=== PATIENT | female | born 1995 | race Caucasian/White ===

== ENCOUNTER 2021-02-17 10:45 | Outpatient (CLI) | payer SELFPAY ==
[2021-02-17 11:29] LABS: Alanine Aminotransferase 14 U/L (4-35); Aspartate Amino Transferase 40 U/L (14-36)
== END 2021-02-17 10:46 | disposition home or self-care (01) ==
PROVIDERS: PCP Family Medicine; Visit Provider Podiatrist Foot & Ankle Surgery
DX: B35.1 Tinea unguium (principal)
CPT/HCPCS: 36415; 84450; 84460

== ENCOUNTER → 2021-03-16 02:53 | Outpatient (CLI) | payer OTHER, SELFPAY ==
[2021-03-17 07:19] LABS: SARS-CoV-2 RNA PCR Negative
== END ==
PROVIDERS: PCP Family Medicine; Visit Provider Physician Assistant Medical
DX: R68.89 Other general symptoms and signs (principal); Z20.822 Contact with and (suspected) exposure to COVID-19
CPT/HCPCS: C9803; U0003; U0005

== ENCOUNTER → 2021-07-01 10:27 | Outpatient (CLI) | payer OTHER, SELFPAY ==
[2021-07-02 18:18] LABS: SARS-CoV-2 RNA PCR Positive
== END ==
PROVIDERS: PCP Family Medicine; Visit Provider Nurse Practitioner Family
DX: U07.1 COVID-19 (principal)
CPT/HCPCS: C9803; U0003; U0005

== ENCOUNTER 2021-07-07 14:45 | Outpatient (RCR) | payer SELFPAY | END 2021-07-26 15:21 | disposition home or self-care (01) | LOC: ANHDMC 14:45 | PROVIDERS: PCP Family Medicine; Visit Provider Nurse Practitioner Family | DX: E10.65 Type 1 diabetes mellitus with hyperglycemia (principal); Z71.89 Other specified counseling | CPT/HCPCS: G0108 ==

== ENCOUNTER 2022-06-28 15:02 | Emergency (ER) | payer BC, SELFPAY ==
[2022-06-28 15:10] VITALS: BP 122/74; PULSE 84; RESP 16; TEMP 36.7; O2SAT 100
--- NOTE | 2022-06-28 15:30 | PC.NURSE ---
concerned with cost, is checking carlos website prior to being seen by provider, aware need for information through insurance co.
--- NOTE | 2022-06-28 15:51 | PC.NURSE ---
came to nurse station and stated did speak with insurance provider and insurance in network with [facility] and does want to be evaluated by dining server.
--- NOTE | 2022-06-28 15:58 | ED.URI ---
HPI - URI/Sore Throat General Chief Complaint: Upper Respiratory Infection Stated Complaint: cp Source: patient Mode of arrival: ambulatory Limitations: no limitations History of Present Illness HPI Narrative: 27 y/o female with hx DM presented for complaints of an episode of CP med today work. She states the pain was ?L? shaped i the center of the chest and under the breast, the episode was brief and resulted in a second of 'breathlessness.' States she felt better when she put on her coat. Tested negative for flu and covid at her job. Blood sugar today is 100. Endorses feeling weak. No complaint of palpitations, sob, wheezing, cough, n/v at this time. States she had an episode of vomiting about one week ago followed by 5 days of diarrhea which improved yesterday after taking imodium. Patient is taking diclofenac for plantar fasciitis. Related Data Home Medications Medication Instructions Recorded Confirmed diclofenac sodium 75 mg mg PO 06/28/22 tablet,delayed release Allergies Allergy/AdvReac Type Severity Reaction Status Date / Time No Known Allergies Allergy Verified 06/28/22 15:06 Review of Systems Review of Systems: CONSTITUTIONAL: Denies body aches, fever, chills, or sweats. EYES: Denies visual changes, redness, or discharge. ENT: Denies rhinorrhea, congestion, sore throat, or otalgia. CARDIOVASCULAR: per HPI. RESPIRATORY: Denies cough or dyspnea. GASTROINTESTINAL: Denies abdominal pain, nausea, vomiting, or diarrhea. GENITOURINARY: Denies dysuria or hematuria. SKIN: Denies rash, itching, or wounds. MUSCULOSKELETAL: Denies back pain, joint pain, or myalgia. NEUROLOGIC: Denies headache, numbness, tingling, or weakness. All systems reviewed & are unremarkable except as noted in HPI and below PMFSH Past Medical History Medical History BMI 23.0-23.9, adult Long-term insulin use Type 1 diabetes mellitus Family History Family History Father Hypertension Mother Thyroid disease Sibling No problems noted. Social History Social History Smoking status: Never smoker Second hand tobacco smoke exposure: Yes Alcohol intake: never Substance use: never Gender identity (if verbalized by the patient): Female Comments At time of signature, I have reviewed and agree with nursing past medical, surgical, social and family history unless otherwise noted. Please see nursing chart for further information. There is no relevant family history pertinent to the presenting complaint Exam Narrative: GENERAL: Well-appearing, well-nourished, and in no acute distress. HEAD: Normocephalic, atraumatic. EYES: EOMI. No redness or drainage. Conjunctivae normal. ENT: Mucous membranes pink and moist. NECK: Normal AROM. Supple. CHEST: No respiratory distress. Clear to auscultation. Nontender mid chest. HEART: Regular rate and rhythm. No murmur appreciated. Normal peripheral pulses. ABDOMEN: Soft, nondistended, normal active bowel sounds. Tender to epigastric area SKIN: Warm, dry, no rash. Capillary refill normal. Normal skin turgor. NEURO: No focal deficits. Alert and oriented x3. PSYCH: Normal affect. Course Course Emergency Course: Patient is aware of diagnosis, understands and agrees to treatment plan. Anticipatory guidance given. Patient agrees to follow-up as directed and is aware of reasons to seek care at the emergency department. Portions of this record may have been created with voice recognition software Level of Care: Express Care Visit Vital Signs Vital signs: Vital Signs Temperature 98.1 F 06/28/22 15:10 Pulse Rate 84 06/28/22 15:10 Respiratory Rate 16 06/28/22 15:10 Blood Pressure 122/74 06/28/22 15:10 Pulse Oximetry 100 06/28/22 15:10 Oxygen Delivery Room Air 06/28/22 15:10 Temperatu
== END 2022-06-28 16:21 | disposition home or self-care (01) ==
PROVIDERS: Emergency Provider Nurse Practitioner Family; PCP Family Medicine
DX: R07.89 Other chest pain (principal); E10.9 Type 1 diabetes mellitus without complications
CPT/HCPCS: 99211; G0463

== ENCOUNTER 2023-01-25 09:30 | Outpatient (RCR) | payer BC, SELFPAY ==
--- NOTE | 2022-12-01 10:47 | OPREHPOC ---
Outpatient Therapy Plan of Care This is a Multidisciplinary Plan of Care that may contain components documented by all disciplines (PT, OT, and ST.) PT Problem 1 PT Problem #1 Knowledge Deficit PT Goal 1 Goal Independent with HEP Target Visit 6 PT Problem 2 PT Problem #2 Pain PT Goal 1 Goal decrease pain to 2/10 at worst Target Visit 6 PT Problem 3 PT Problem #3 Impaired Range of Motion PT Goal 1 Goal LON Eversion to 20 degrees Target Visit 6 PT Problem 4 PT Problem #4 Impaired Flexibility PT Goal 1 Goal decrease LON gastroc tightness to allow for equal dorsiflexion range of motion with knee bent or straight. Target Visit 6
--- NOTE | 2022-12-01 10:47 | PTOPEVAL1 ---
Assessment and note entered by Jose Carlos Ferguson, PT Evaluation Information Assessment Status Evaluation Diagnosis LON plantar fascitis Onset June 2022 Subjective Information Patient reports she started having L foot pain in June and in September starting having the same pain on the R foot. 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 Reports wearing supportive shoes. Was given set of HEP prior by her MD, but did not do them. Pain worst first thing in AM and after prolonged inactivity. Reported Pain Level Pain Score 0: Self Report Assessment PT Clinical Summary Michelle is a 27 year old female coming into the clinic with a diagnosis of LON plantar fascitis. Patient has decreased eversion in LON ankles along tightness in her LON gastrocnemius. Patient has gravely feel in her feet with manual therapy. Gave patient HEP and recommended night splints to wear throughout the night. Physical therapy will work on improving deficits along with manual and modalities for pain to help speed along recovery. Patient reports she cannot do injections secondary to blood sugar concerns being DM type 1. Plan of Care Interventions Electrical Stimulation,Gait Training,Hot Pack/Cold Pack,Manual Therapy,Neuro Re-education,Patient/ Caregiver Education,Therapeutic Activities, Therapeutic Exercise,Ultrasound Other Interventions cupping, taping, IASTM. PT Services Indicated Yes Treatment Frequency and 1-2x/wk for 4 weeks Duration These treatments will address the objective and functional deficits as defined above. The patient will be advanced safely and appropriately in order for the patient to progress towards his/her prior level of function. Additional exercises will be introduced and as well as a comprehensive home exercise program upon discharge, if needed, ?to ensure carryover of functional gains achieved in the clinic. This treatment plan has been reviewed and agreement upon by the patient.
--- NOTE | 2022-12-05 10:11 | PCPTNOTE ---
Patient did not show up for scheduled appointment this date. Called patient and told her about her next appointment. Patient states it is going to be hard to come, because she has other appointments and asked if we could call her day before appointments to remind her. Therapist informs patient we can give her a printout of her appointments, but we only call and give reminders for initial evaluation not every visit.
--- NOTE | 2022-12-28 13:06 | PTOPEVAL1 ---
Assessment and note entered by Warren Sanchez Evaluation Information Assessment Status Progress Diagnosis LON plantar fascitis Onset June 2022 Subjective Information Pt. reports she still has varying pain. She states that she no longer has pain at the left foot. She states that her pain is only on the right. She reports that she notices pain mostly in the morning. She states that she has been using taping which seems to relieve her pain as well. Reported Pain Level Pain Score 0,3: Self Report Assessment PT Clinical Summary Pt. has attended a total of 8 treatment sessions. In this time she has demonstrated improvements in pain reports and DF ROM on both right and left. She continues to have pain on the right side despite her reported improvements. continued skilled PT is indicated to continue to focus on strength, pain reduction and mobility to improve tolerance to standing activities. Plan of Care Interventions Manual Therapy,Neuro Re-education,Patient/ Caregiver Educati,Therapeutic Activities, Therapeutic Exercise Other Interventions cupping, taping, IASTM. PT Services Indicated Yes Treatment Frequency and 2x/week x 6 visits Duration These treatments will address the objective and functional deficits as defined above. The patient will be advanced safely and appropriately in order for the patient to progress towards his/her prior level of function. Additional exercises will be introduced and as well as a comprehensive home exercise program upon discharge, if needed, ?to ensure carryover of functional gains achieved in the clinic. This treatment plan has been reviewed and agreement upon by the patient.
--- NOTE | 2023-01-01 10:24 | PCPTNOTE ---
Patient called & cancelled scheduled appointment this date due to not feeling well.
--- NOTE | 2023-01-11 10:17 | PCPTNOTE ---
Pt NS due to oversleeping.
--- NOTE | 2023-01-18 12:35 | PCPTNOTE ---
pt called and canceled today's appt due to being ill.
--- NOTE | 2023-01-25 10:20 | PTOPEVAL1 ---
Assessment and note entered by Warren Sanchez Evaluation Information Assessment Status Evaluation Diagnosis LON plantar fasciitis Onset 07/10 Subjective Information Pt. reports she is having no pain today. She states that she is pleased with her progress and continues to exercise at home. She states that she will continue with exercise and is ready for discharge. Reported Pain Level Pain Score 0,0: Self Report Assessment PT Clinical Summary Pt. has met all goals established at the initial evaluation. She currently has a comprhensive HEP focused on strength and flexiblity and provided additional written instruction on this date. she is appropriate for discharge at this time. Plan of Care Interventions Manual Therapy,Neuro Re-education,Patient/ Caregiver Educati,Therapeutic Activities, Therapeutic Exercise Other Interventions cupping, taping, IASTM. PT Services Indicated Yes Treatment Frequency and D/C from PT to an independent HEP. Duration These treatments will address the objective and functional deficits as defined above. The patient will be advanced safely and appropriately in order for the patient to progress towards his/her prior level of function. Additional exercises will be introduced and as well as a comprehensive home exercise program upon discharge, if needed, ?to ensure carryover of functional gains achieved in the clinic. This treatment plan has been reviewed and agreement upon by the patient.
== END 2023-01-25 13:22 | disposition home or self-care (01) ==
LOC: ANHPT 09:30
PROVIDERS: PCP Emergency Medicine; Visit Provider Nurse Practitioner Family
DX: M72.2 Plantar fascial fibromatosis (principal)
CPT/HCPCS: 97035; 97110; 97140; 97161; 97530; 99199

== ENCOUNTER 2023-08-12 08:49 | Outpatient (CLI) | payer BC, SELFPAY ==
--- NOTE | ~2023-08-12 | MR_ITS ---
EXAMINATION: MR lower leg RT wo con DATE: 08/12/2023 09:35 INDICATION: Achilles tendinitis. Ankle pain. TECHNIQUE: Magnetic resonance imaging (MRI) of the right lower leg was performed without intravenous contrast. Sequences included coronal and bilateral T1 FSE and FSE STIR; axial right lower extremity T 1 FSE and FSE STIR; and sagittal right lower extremity sagittal T1 FSE and FSE STIR. COMPARISON: None. FINDINGS: Mild thickening to 8 mm of the distal insertional portion of the right Achilles tendon with slightly increased intermediate T1 and STIR signal within the tendon substance. Very minimal abnormal peritend inous STIR signal. No focal tear identified. Small retrocalcaneal bursa fluid collection. Small volum e right ankle fluid, slightly greater than the left. Normal bone marrow signal. No fracture identifie d. The partially visualized portions of the flexor and extensor tendons are intact. IMPRESSION: Mild right Achilles tendinopathy and paratenonitis. Mild right retrocalcaneal bursitis. Small right a nkle joint effusion. Reviewed, dictated and finalized at location K. [employer] PROF[employer] IMPRESSION: Mild right Achilles tendinopathy and paratenonitis. Mild right retrocalcaneal b ursitis. Small right ankle joint effusion.
== END 2023-08-12 08:50 | disposition home or self-care (01) ==
LOC: ANHIMG 08:51
PROVIDERS: PCP Emergency Medicine; Visit Provider Emergency Medicine
DX: M76.61 Achilles tendinitis, right leg (principal)
CPT/HCPCS: 73718

== ENCOUNTER 2024-02-13 09:30 | Outpatient (RCR) | payer BC, SELFPAY ==
--- NOTE | 2024-01-09 13:08 | OPREHPOC ---
Outpatient Therapy Plan of Care This is a Multidisciplinary Plan of Care that may contain components documented by all disciplines (PT, OT, and ST.) PT Problem 1 PT Problem #1 Knowledge Deficit PT Goal 1 Goal Pt to be IND with issued HEP Target Visit 8 PT Problem 2 PT Problem #2 Pain PT Goal 1 Goal Pt to report foot pain no greater than 3/10 in the last week. Target Visit 10 PT Goal 2 Goal Pt to report 75% improvement in overall symptoms. Target Visit 10 PT Problem 3 PT Problem #3 Pain PT Goal 1 Goal Pt to be able to be on her feet for 4 hours without an increase in pain. Target Visit 8 PT Problem 4 PT Problem #4 Impaired Range of Motion PT Goal 1 Goal Pt to improve active ankle dorsiflexion to 20 deg. Target Visit 8
--- NOTE | 2024-01-09 13:08 | PTOPEVAL1 ---
Assessment and note entered by Ct Thompson, PT, DPT Evaluation Information Assessment Status Evaluation Diagnosis Achilles tendonitis and plantar fasciitis ICD-10 Condition Codes (PT) M25.571,M25.572 Onset 1+ year Subjective Information Pt states she has had foot and calf pain for over a year. She states she has a diagnosis of plantar fascitis but she does not have that. She has gotten 2 MRIs and an ultrasound. She reports she cannot stand for longer than an hour. She reports pain in her ankle and lower calf. She states the only thing that helps is staying off her feet. Reported Pain Level Pain Score 0: Self Report Assessment PT Clinical Summary Michelle presents to therapy today for her initial evaluation. Today she demonstrates minor loss of ROM on her R ankle, with a mild decrease in ankle strength jasmyn. She demonstrates high plantar arches with tenderness to palpation along her plantar fascia. Skilled therapy services are indicated to improve ankle strength, stability, and mobility, to manage pain, and to return to [facility]. Plan of Care Interventions Gait Training,Hot Pack/Cold Pack,Manual Therapy, Neuro Re-education,Patient/Caregiver Educati, Therapeutic Activities,Therapeutic Exercise PT Services Indicated Yes Treatment Frequency and 1x/wk for 8 visits Duration These treatments will address the objective and functional deficits as defined above. The patient will be advanced safely and appropriately in order for the patient to progress towards his/her prior level of function. Additional exercises will be introduced and as well as a comprehensive home exercise program upon discharge, if needed, ?to ensure carryover of functional gains achieved in the clinic. This treatment plan has been reviewed and agreement upon by the patient.
--- NOTE | 2024-02-20 10:14 | PCPTNOTE ---
Pt no showed, forgot to cancel. Reminded of re-eval next appt in [place] vs WC.
--- NOTE | 2024-02-29 15:20 | PCPTNOTE ---
Patient was a no show/no call for today's progress note visit.
--- NOTE | 2024-03-25 09:26 | PTOPDC ---
Assessment and note entered by Ct Thompson, PT, DPT Evaluation Information Assessment Status Discharge - Pt Not Present Diagnosis Achilles tendonitis and plantar fasciitis ICD-10 Condition Codes (PT) M25.571,M25.572 Onset 1+ year Subjective Information Called and spoke with pt. She states therapy was not working for her and she is following up with pain management instead. Requested to be d/c'ed at this time. Assessment PT Clinical Summary Pt completed 5 visits of skilled pt without reported benefits. Will be d/c'ed per request.
== END 2024-03-25 16:03 | disposition home or self-care (01) ==
LOC: ANHPT 09:30
PROVIDERS: PCP Family Medicine; Visit Provider Emergency Medicine
DX: M72.2 Plantar fascial fibromatosis (principal)
CPT/HCPCS: 97022; 97035; 97110; 97140; 97161; 97530

== ENCOUNTER 2025-01-11 13:09 | Emergency (ER) | payer BC, SELFPAY ==
[2025-01-11 13:15] VITALS: BP 123/71; PULSE 101; RESP 20; TEMP 37.2; O2SAT 99
--- NOTE | 2025-01-11 13:30 | ED.URI ---
HPI - URI/Sore Throat General Chief Complaint: Upper Respiratory Infection Stated Complaint: sore throat Time Seen by Provider: 01/11/25 13:31 Source: patient, RN notes reviewed and old records reviewed Mode of arrival: ambulatory Limitations: no limitations History of Present Illness HPI Narrative: 29-year-old female presents to the [facility] with a 2 day history of a sore throat. Patient reports that she did in at home COVID and flu test which she reports is negative. Took the test on Sunday. Patient has taken [id number] products. Onset (ago): day(s) (2) Related Data Allergies Allergy/AdvReac Type Severity Reaction Status Date / Time No Known Allergies Allergy Verified 01/11/25 13:27 Review of Systems Review of Systems: All systems reviewed & are unremarkable except as noted in HPI and below Constitutional: Constitutional: Reports no additional constitutional complaints ENT: Reports as per HPI, Denies otalgia, Reports sore throat, Denies throat swelling and Denies tongue swelling Cardiovascular: Cardiovascular: Reports no additional cardiovascular complaints, Denies chest pain and Denies dyspnea Respiratory: Respiratory: Reports no additional respiratory complaints, Denies chest congestion, Denies cough and Denies dyspnea Musculoskeletal: Musculoskeletal: Reports no additional musculoskeletal complaints Integumentary/Breasts: Skin/Breast: Reports system reviewed and no additional complaints, except as docu PMFSH Past Medical History Medical History Long-term insulin use BMI 23.0-23.9, adult Type 1 diabetes mellitus Surgical History Surgical History No history of previous surgery Family History Family History Father Hypertension Mother Thyroid disease Sibling No problems noted. Social History Social History Social History: caffeine use Smoking status: Never smoker Second hand tobacco smoke exposure: Yes Alcohol intake: never Substance use: never Substance use type: does not use Do You Feel Safe in your Home?: Yes Lack of Transportation: No Lack of Food: Never True Current Housing: I Have Housing Concerned About Future Housing: No Difficulty Paying Gas/Electric Bills: No Difficulty Paying for Meds: No Currently Unemployed: No Education: Master's Degree or Higher Difficulty w/ Childcare or Family Care: No Living arrangements: with family Occupation/Education: occupation 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 There is no relevant family history pertinent to the patient complaint. Exam Const: General: cooperative, healthy appearing, comfortable, no acute distress, well developed, alert and well nourished Nutritional Appearance: well nourished Orientation/consciousness: patient oriented x3 Limitations: no limitations HENMT: Head: normal to inspection Ears: hearing grossly normal bilaterally, external ears normal, TM's normal bilaterally, EAC's normal, mastoids normal and no periauricular adenopathy Face and sinus: normal facial exam, sinuses nontender and face symmetric Mouth: Yes Normal oral and palatal mucosa present, Yes lip normal, Yes tongue normal and Yes moist mucous membranes Throat: posterior oropharynx normal, uvula midline, postnasal drainage and no uvular edema Eyes: General: appearance normal, both eyes and all related structures Alignment and Position: alignment normal Neck: Neck: normal visual inspection, full ROM, no lymphadenopathy and no meningeal signs Chest: Chest palpation & inspection: normal inspection of the chest Resp: Effort & Inspection: normal respiratory effort and able to speak in complete sentences Auscultation: clear to auscultation bilaterally, no crackles, no rales, no rhonchi and no wheezes Cardio: Rate: regular rate Skin: General skin exam: normal color and no rashes or lesions noted Neuro: General: patient oriented x3, gait normal, moves all extremities and no meningeal signs Cognition (Neuro): normal cognition Speech: normal speech Gait exam (Neuro): Normal gait present Extrem: General: normal to inspection, full ROM, capillary refill normal and normal gait Psych: Appearance: grossly normal and well kempt Mental Status: mental status grossly normal Speech and movement: Normal speech and movement present and Clear speech present Affect: normal affect Attitude: cooperative Course Course Level of Care: Express Care Visit Vital Signs Vital signs: Vital Signs Temperature 99.0 F 01/11/25 13:15 Pulse Rate 101 H 07/27/25 13:15 Respiratory Rate 20 01/11/25 13:15 Blood Pressure 123/71 01/11/25 13:15 Pulse Oximetry 99 01/11/25 13:15 Oxygen Delivery Room Air 01/11/25 13:15 Temperature 99.0 F 01/11/25 13:15 Pulse Rate 101 H 01/11/25 13:15 Respiratory Rate 20 01/11/25 13:15 Blood Pressure 123/71 01/11/25 13:15 Pulse Oximetry 99 01/11/25 13:15 Oxygen Delivery Room Air 01/11/25 13:15 Reviewed MDM - URI/Sore Throat MDM Narrative Medical decision making narrative: Patient sitting in exam room. Patient is nontoxic, vitals stable. Patient presents with 2 day history of a sore throat. Strep test negative, will culture. 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 The instructions also include specific and strict return/GO TO THE ER as well as f/u information. All questions have been answered, and the patient deny any further questions with discharge and discharge plan. Some parts of this dictation were generated by voice recognition software and may contain typographical and/or grammatical inaccuracies. Differential Diagnosis Differential diagnosis: Likely upper respiratory infection, otitis media, sinusitis, viral infection, bronchitis, influenza and pharyngitis Lab Data Labs: Lab Results 01/11/25 01/11/25 Range/Units 13:20 13:43 POC Grp A Strep Screen Negative Negative (Negative) Reviewed Critical Care Time Critical Care Time Critical Care Time: No Discharge Plan Discharge Clinical Impression: Laryngitis Pharyngitis Qualifiers: Pharyngitis/tonsillitis etiology: unspecified etiology Qualified Code(s): J02.9 - Acute pharyngitis, unspecified Patient Disposition: Home Condition: Stable Instructions: Antibiotic Form, Pharyngitis (ED) Additional Instructions: Your rapid strep swab was negative today at [facility]. A throat culture will be sent to the laboratory for further testing. If the test is positive, you will receive a phone call within 48 hours and an appropriate antibiotic will be initiated at that time. It is important being a diabetic to closely monitor your blood sugars when taking a steroid. Your symptoms are likely due to a viral illness, which is not treated with antibiotics. Typically viral infections last 7-10 days, can linger for couple of weeks. It is very important to treat your symptoms. Drink plenty of water, Gatorade, Pedialyte, ice pops or Jell-O. -Alternate Tylenol and Motrin per package directions for fever or pain. You can alternate every 4 hours -Antihistamine medication such as Zyrtec/Claritin/Catherine during the day can help improve symptoms. -doing daily nasal irrigations can help relieve pressure your sinuses. Things like a Neti pot -Use Flonase twice a day for 5 days then daily to help reduce the inflammation and dry up your sinuses. -You can also use Mucinex. Be sure to drink plenty of water with this medication at least 8 ounces with every dose and it is important to drink 8 to 10 glasses of water per day. Water is a natural decongestant -Eat and drink things that are easy to swallow, like tea or soup, or popsicles. -Oral rinses such as: Salt water gargles and/or may use topical anesthetic (eg. Chloraseptic spray) or lozenges to relieve dryness or throat pain). -Frequent hand washing or hand nursing informatics clinical analyst is one of the best ways to prevent spread of infection. -Using a vaporizer or humidifier at night will also help thin secretions and help with coughing up phlegm. -Follow up with primary care provider in 7-10 days if condition is not improving - For new or worsening symptoms go directly to the nearest ER Patient Language: Portuguese Prescriptions: New methylprednisolone [Medrol (Jairo)] 4 mg tablets,dose pack See Rx Instructions PO .COMPLEX Qty: 21 0RF Rx Instructions: orally per package directions No Action Cadeau DHA 29 mg iron- 1 mg-150 mg capsule 1 cap PO DAILY Qty: 30 3RF (DME) urine glucose-ketones test Strip See Rx Instructions .ROUTE .MEDSUPPLY Qty: 50 0RF Rx Instructions: As directed Baqsimi 3 mg/actuation spray,non-aerosol 3 mg intranasal ONCE PRN (Reason: hypoglycemia) Qty: 1 1RF Rx Instructions: as a single dose azelastine 137 mcg (0.1 %) spray,non-aerosol 137 mcg intranasal Q12H PRN (Reason: post nasal drip) Qty: 30 1RF Rx Instructions: administer into each nostril (DME) Omnipod 5 G6-G7 Pods (Gen 5) Cartridge See Rx Instructions .ROUTE .MEDSUPPLY Qty: 45 2RF Rx Instructions: Change every 48hours letrozole 2.5 mg tablet 2.5 mg PO DAILY 5 Days Qty: 5 3RF Rx Instructions: take on days 3 through 7 of your menstrual cycle (DME) Dexcom G6 Transmitter Device See Rx Instructions .ROUTE .MEDSUPPLY Qty: 1 3RF Rx Instructions: Use to monitor glucose; change every 90 days (DME) Dexcom G6 Sensor Device See Rx Instructions .ROUTE .MEDSUPPLY Qty: 9 4RF Rx Instructions: Use to Monitor Glucose ; Change every 10 days (DME) Dexcom G6 Risk Engineer Misc See Rx Instructions .ROUTE .MEDSUPPLY Qty: 1 0RF Rx Instructions: As directed Apidra SoloStar U-100 Insulin 100 unit/mL insulin pen 40 unit subcut DAILY MDD 40 Qty: 36 1RF Follow-up/Referrals: Graeme Morris MD [Primary Care Provider] - 1 Week Stand Alone Forms: Work/School Release IP Time of Disposition: 13:37
[2025-01-11 13:31] LABS: EDSTREPNEGPOS1 Negative (Negative)
[2025-01-11 13:48] LABS: EDSTREPNEGPOS1 Negative (Negative)
== END 2025-01-11 13:43 | disposition home or self-care (01) ==
PROVIDERS: Emergency Provider Nurse Practitioner; PCP Family Medicine
DX: J04.0 Acute laryngitis (principal); J02.9 Acute pharyngitis, unspecified; E10.9 Type 1 diabetes mellitus without complications; Z79.4 Long term (current) use of insulin
CPT/HCPCS: 87081; 87880; 99213; G0463

== ENCOUNTER 2025-03-06 09:04 | Outpatient (CLI) | payer BC, SELFPAY ==
--- NOTE | ~2025-03-06 | XR_ITS ---
EXAMINATION: XR chest 2V, 03/06/2025 9:08 CDT HISTORY: R05.9 - Cough, unspecified COMPARISON: No comparisons available. Technique: 2 views obtained. Findings: The lungs are clear, no effusion. No pneumothorax. Heart is normal size. Mediastinal and hilar contours are within normal limits. Bony thorax no acute abnormality. Impression: No acute cardiopulmonary abnormality. Reviewed, dictated and finalized at location A. Impression: No acute cardiopulmonary abnormality.
== END 2025-03-06 09:05 | disposition home or self-care (01) ==
LOC: MICIMG 09:05
PROVIDERS: PCP Family Medicine
DX: R05.9 Cough, unspecified (principal)
CPT/HCPCS: 71046